=== PATIENT | male | born 1970 | race Caucasian/White ===

== ENCOUNTER 2023-02-20 19:06 | Emergency (ER) | payer BC ==
[2023-02-20] MEDS ORDERED: Lidocaine 4% 1 each Patch TOP PRN (20:52)
[2023-02-20] MEDS ORDERED: Acetaminophen/HYDROcodone 325-5 MG Tab PO ONE (20:52)
[2023-02-20] MEDS ORDERED: Ibuprofen 800 MG Tab PO ONE (20:53)
== END 2023-02-20 21:46 | disposition home or self-care (01) ==
LOC: MW.ED 19:06
DX: S22.42XA Multiple fractures of ribs, left side, initial encounter for closed fracture (principal); W01.0XXA Fall on same level from slipping, tripping and stumbling without subsequent striking against object, initial encounter; Y92.002 Bathroom of unspecified non-institutional (private) residence as the place of occurrence of the external cause
CPT/HCPCS: 71101; 99283; A9270